=== PATIENT | male | born 1975 | race Caucasian/White ===

== ENCOUNTER 2021-10-14 18:48 | Emergency (ER) | payer MEDICAID ==
[~2021-10-14] VITALS: Ht 177.8 cm; Wt 89.0 kg
--- NOTE | 2021-10-14 19:40 | NUR ---
Dr. Cutler on bedside for MSE.
[2021-10-14] MEDS ORDERED: KETOROLAC TROMETHAMINE 60 MG INJ IM ONE ×2 (19:45→20:33)
--- NOTE | 2021-10-14 20:20 | NUR ---
Patient arrived at the ER with c/o of right foot pain x1 week. Pain was worst last night per patient.
[2021-10-14] MEDS ORDERED: IBUP-1958 PO (21:46)
[2021-10-14] MEDS ORDERED: SULF1TAB48 PO (21:46)
--- NOTE | 2021-10-14 21:54 | NUR ---
Patient discharged to home in stable condition. Written and verbal after care instructions given. Patient verbalizes understanding of instructions. Stressed follow up or return to ER for worsening s/s. atient ambulated from the ER with steady gait. All belongings with patient.
[2021-10-14 21:55] VITALS: BP 139/89
== END 2021-10-14 21:54 | disposition home or self-care (01) ==
LOC: ER 18:53
DX: L03.115 Cellulitis of right lower limb (principal); M79.671 Pain in right foot; Z86.19 Personal history of other infectious and parasitic diseases
CPT/HCPCS: 36415; 73630; 84550; 96372; 99284; J1885; A4663

== ENCOUNTER 2022-12-16 17:54 | Emergency (ER) | payer MEDICAID ==
[~2022-12-16] VITALS: Ht 177.8 cm; Wt 99.8 kg
[~2022-12-16 17:54] MED LIST: IBUP-1958 PO; SULF1TAB48 PO
[2022-12-16] MEDS ORDERED: POLY15DR31 EACHEYE (18:15)
[2022-12-16] MEDS ORDERED: BENZ-13 PO (18:15)
[2022-12-16] MEDS ORDERED: IBUP-1955 PO (18:15)
[2022-12-16] MEDS ORDERED: KETOROLAC TROMETHAMINE 15 MG INJ IM ONE (18:15)
[2022-12-16] MEDS ORDERED: KETOROLAC TROMETHAMINE 15 MG INJ ONE (18:21)
--- NOTE | 2022-12-16 18:29 | NUR ---
PT EVALUATED BY DR WEBB.
[2022-12-16 18:32] VITALS: BP 140/60
--- NOTE | 2022-12-16 18:32 | NUR ---
Patient discharged to home in stable condition. Written and verbal after care instructions given. Patient verbalizes understanding of instructions. Stressed follow up or return to ER for worsening s/s.
== END 2022-12-16 18:32 | disposition home or self-care (01) ==
LOC: ER 18:04
DX: J06.9 Acute upper respiratory infection, unspecified (principal); R05.9 Cough, unspecified; R09.81 Nasal congestion; H10.89 Other conjunctivitis; B97.89 Other viral agents as the cause of diseases classified elsewhere; Z79.1 Long term (current) use of non-steroidal anti-inflammatories (NSAID); Z79.899 Other long term (current) drug therapy; Z20.822 Contact with and (suspected) exposure to COVID-19
CPT/HCPCS: 99283; 87426; 96372; U0003; J1885; A4663